=== PATIENT | female | born 1990 | race African-American/Black ===

== ENCOUNTER 2020-04-02 09:18 | Inpatient (IN) ==
[2020-04-02] MEDS ORDERED: miSOPROStoL 200 MCG TABLET ONE (09:21)
[2020-04-02] MEDS ORDERED: TRANEXAMIC ACID 1,000 MG/10 ML VIAL ONE (09:21)
[2020-04-02] MEDS ORDERED: CARBOPROST TROMETHAMINE 250 MCG/ML AMP IM ONE (09:22)
[2020-04-02] MEDS ORDERED: METHYLERGONOVINE 0.2 MG/1 ML AMP ONE (09:22)
[2020-04-02] MEDS ORDERED: OXYTOCIN/LR 20 UNIT/1,000 ML BAG IV ONE ×4 (09:22→18:04)
[2020-04-02] MEDS ORDERED: OXYTOCIN 10 UNIT/ML VIAL ONE (09:27)
[2020-04-02] MEDS ORDERED: CITRIC ACID/SODIUM CITRATE 30 ML UDCUP PO ONE (09:38)
[2020-04-02 10:59] LABS: Basophils % 0.1 % (0.0-0.8); Eosinophils % 0.4 % (0.00-10.9); Hematocrit 29.7 VOL% (35.7-47.0); Hemoglobin 9.9 GM/DL (12.0-16.0); Immature Granulocytes % 0.6 %; Immature Granulocytes Absolute 0.04 #; Lymphocytes # 1.3 10*3/uL (1.4-4.0); Lymphocytes % 18.3 % (21.3-54.2); Mean Corpuscular HGB Conc 33.3 GM/DL (32-36); Mean Platelet Volume 10.4 FL (9.6-12.0); Monocytes % 7.1 % (1.7-12.7); Neutrophils % 73.5 % (38.7-73.9); Platelet Count 147 T/CUMM (130-400); Red Blood Count 3.58 MC/CUMM (3.8-5.5); Red Cell Distribution Width 13.2 % (9.3-17.3); White Blood Count 7.2 T/CUMM (4-12)
[2020-04-02] MEDS: LACTATED RINGERS 1,000 ML IV SCH ×2 (11:00→12:13)
[2020-04-02 11:17] LABS: Alanine Aminotransferase < 9 U/L (13-56); Albumin 2.8 G/DL (3.4-5.0); Alkaline Phosphatase 194 U/L (45-117); Aspartate Amino Transferase 12 U/L (0-37); Blood Urea Nitrogen 5 MG/DL (7-18); Calcium 8.4 MG/DL (8.5-10.1); Estimated Glom Filtration Rate 182 ML/MIN; Glucose 72 MG/DL (74-106)
[2020-04-02] MEDS ORDERED: FAMOTIDINE 20 MG/2 ML VIAL IV ONE (11:30)
[2020-04-02] MEDS ORDERED: ceFAZolin 2,000 MG in PREMIX 1 EACH IV ONE (11:30)
[2020-04-02] MEDS ORDERED: OXYTOCIN 10 UNIT/ML VIAL IM ONE (12:00)
[2020-04-02] MEDS ORDERED: OXYTOCIN/LR 30 UNIT/1,000 ML BAG IV ONE (12:00)
[2020-04-02 12:19] LABS: HIV Antigen/Antibody Result Nonreactive (Nonreactive); Hepatitis B Surface Ag Quant 0.15 Index; Hepatitis B Surface Ag Result Negative (Negative)
[2020-04-02] MEDS ORDERED: MORPHINE 10 MG/10 ML VIAL ONE (12:19)
[2020-04-02] MEDS ORDERED: PHENYLEPHRINE 1 MG/10 ML SYRINGE IV ONE (12:19)
[2020-04-02] MEDS ORDERED: ONDANSETRON 4 MG/2 ML VIAL ONE (12:19)
[2020-04-02] MEDS ORDERED: ROPIVACAINE 0.5% 30 ML VIAL ONE (12:20)
[2020-04-02] MEDS ORDERED: BUPIVACAINE SPINAL 0.75% 2 ML AMP SPINAL ONE (12:20)
[2020-04-02 14:01] LABS: Apearance,Urine Slightly Hazy (Clear); Bacteria,Urine Occasional /HPF (Few); Bilirubin,Urine Negative (Negative); Blood, Urine Negative (Negative); Glucose,Urine (UA) Negative (Negative); Ketones,Urine Negative (Negative); Mucus,Urine Occasional /LPF (Occasional); Nitrite,Urine Negative (Negative); Protein,Urine Negative; RBC,Urine <1 /HPF (0-4); Squamous Epithelial Cell,Urine Occasional /HPF (0-10); Urine Color Yellow (Yellow); Urine Specific Gravity 1.008 (1.001-1.035); WBC,Urine 1 /HPF (0-6)
[2020-04-02] MEDS ORDERED: MAGNESIUM HYDROXIDE SUSP 30 ML UDCUP PO PRN ×2 (14:04→18:04)
[2020-04-02] MEDS ORDERED: ONDANSETRON 4 MG/2 ML VIAL IV PRN ×2 (14:04→18:04)
[2020-04-02] MEDS ORDERED: RHO(D) IMMUNE GLOBULIN 300 MCG SYRINGE IM ONE ×2 (14:04→18:04)
[2020-04-02] MEDS ORDERED: IBUPROFEN 800 MG TABLET PO PRN ×2 (14:04→18:04)
[2020-04-02] MEDS ORDERED: ACETAMINOPHEN 325 MG TABLET PO PRN ×2 (14:04→18:04)
[2020-04-02] MEDS ORDERED: LACTATED RINGERS 1,000 ML IV SCH ×2 (14:30→18:04)
[2020-04-02] MEDS ORDERED: SIMETHICONE CHEW 80 MG TABLET PO PRN (18:04)
[2020-04-02 20:38] LABS: Basophils % 0.1 % (0.0-0.8); Hematocrit 29.6 VOL% (35.7-47.0); Hemoglobin 9.8 GM/DL (12.0-16.0); Immature Granulocytes % 0.6 %; Immature Granulocytes Absolute 0.06 #; Lymphocytes # 0.8 10*3/uL (1.4-4.0); Lymphocytes % 7.7 % (21.3-54.2); Mean Corpuscular HGB Conc 33.1 GM/DL (32-36); Mean Corpuscular Volume 85.1 FL (87-102); Mean Platelet Volume 10.6 FL (9.6-12.0); Monocytes % 4.1 % (1.7-12.7); Neutrophils % 87.5 % (38.7-73.9); Platelet Count 143 T/CUMM (130-400); Red Blood Count 3.48 MC/CUMM (3.8-5.5); White Blood Count 10.4 T/CUMM (4-12)
[2020-04-02] MEDS ORDERED: DOCUSATE SODIUM 100 MG CAPSULE PO SCH (21:00)
[2020-04-02] MEDS: DOCUSATE SODIUM 100 MG CAPSULE PO SCH (21:33)
[2020-04-02] MEDS: ceFAZolin 1,000 MG in SYRINGE 1 EACH IV SCH (21:34)
[2020-04-03] MEDS: ceFAZolin 1,000 MG in SYRINGE 1 EACH IV SCH (05:12)
[2020-04-03 06:34] LABS: Basophils % 0.1 % (0.0-0.8); Eosinophils % 0.1 % (0.00-10.9); Hematocrit 27.1 VOL% (35.7-47.0); Hemoglobin 9.1 GM/DL (12.0-16.0); Immature Granulocytes % 0.5 %; Immature Granulocytes Absolute 0.06 #; Lymphocytes # 1.5 10*3/uL (1.4-4.0); Lymphocytes % 13.9 % (21.3-54.2); Mean Corpuscular HGB Conc 33.6 GM/DL (32-36); Mean Corpuscular Volume 83.6 FL (87-102); Mean Platelet Volume 10.9 FL (9.6-12.0); Monocytes % 10.5 % (1.7-12.7); Neutrophils % 74.9 % (38.7-73.9); Platelet Count 141 T/CUMM (130-400); Red Blood Count 3.24 MC/CUMM (3.8-5.5); Red Cell Distribution Width 12.9 % (9.3-17.3)
[2020-04-03] MEDS ORDERED: MULTIVITAMIN (PRENATAL) TABLET PO SCH ×2 (09:00)
[2020-04-03] MEDS: METOCLOPRAMIDE 10 MG TABLET PO SCH ×2 (09:15→15:45)
[2020-04-03] MEDS: FERROUS SULFATE 325 MG TABLET PO SCH (09:16)
[2020-04-03] MEDS: DOCUSATE SODIUM 100 MG CAPSULE PO SCH (09:16)
[2020-04-03] MEDS ORDERED: ceFAZolin 1,000 MG in SYRINGE 1 EACH IV SCH (11:00)
[2020-04-03] MEDS: SIMETHICONE CHEW 80 MG TABLET PO PRN ×2 (14:48→18:38)
[2020-04-03] MEDS ORDERED: MAGNESIUM CITRATE 300 ML BOTTLE PO ONE (18:35)
[2020-04-03 19:00] LABS: Hematocrit 27.9 VOL% (35.7-47.0); Hemoglobin 9.2 GM/DL (12.0-16.0)
[2020-04-03] MEDS ORDERED: BISACODYL 10 MG SUPP RECTAL PRN (19:23)
[2020-04-04] MEDS ORDERED: IBUPROFEN 800 MG TABLET PO PRN (02:00)
[2020-04-04] MEDS: DOCUSATE SODIUM 100 MG CAPSULE PO SCH ×2 (05:33→08:59)
[2020-04-04] MEDS: FERROUS SULFATE 325 MG TABLET PO SCH ×2 (05:33→08:59)
[2020-04-04 11:59] VITALS: BP 123/72
[2020-04-04] MEDS ORDERED: DIPH/TET/ACEL PERT BOOSTER VACCINE 0.5 ML VIAL IM ONE (12:20)
== END 2020-04-04 14:40 | disposition home or self-care (01) | DRG 540 ==
LOC: N.LDOUT 09:18 → N.LD 09:20 → N.OB 17:54
PROVIDERS: ADMIT Obstetrics & Gynecology; ATTEND Obstetrics & Gynecology
PROC: LDCSECT (ICD-10-PCS; 2020-04-02 13:00)